=== PATIENT | male | born 1955 | race Caucasian/White ===

== ENCOUNTER → 2018-04-28 | Outpatient (CLI) | payer BC | END | disposition home or self-care (01) | LOC: LABWHC1 15:20 | PROVIDERS: ATTEND Physician Assistant | DX: R42 Dizziness and giddiness (principal) | CPT/HCPCS: 93005 ==

== ENCOUNTER → 2018-05-09 | Outpatient (CLI) | payer BC ==
--- NOTE | 2018-05-10 09:40 | ECHOF ---
Referral Reason:I51.7 Cardiomegaly MEASUREMENTS -------- HEIGHT: 172.7 cm WEIGHT: 69.9 kg BP: RVIDd: 2.8 cm (< 3.3) IVSd: 0.8 cm (0.6 - 1.1) LVIDd: 3.9 cm (3.9 - 5.3) LVPWd: 0.9 cm (0.6 - 1.1) IVSs: 1.2 cm LVIDs: 2.6 cm LVPWs: 1.2 cm LAESV Index (A-L): 20.59 ml/m Ao Diam: 2.6 cm (2.0 - 3.7) AV Cusp: 1.9 cm (1.5 - 2.6) LA Diam: 2.2 cm (2.7 - 3.8) EPSS: 0.7 cm MV E James: 0.76 m/s MV DecT: 248 ms MV A James: 0.93 m/s MV E/A Ratio: 0.82 RAP: 5.00 mmHg RVSP: 32.07 mmHg MV EF SLOPE: 85.61 mm/s (70 - 150) MV EXCURSION: 1.79 cm (> 18.000) FINDINGS -------- Sinus rhythm. This was a technically good study. The left ventricular size is normal. Left ventricular wall thickness is normal. Overall left vent ricular systolic function is normal with, an EF between 55 - 60 %. The right ventricle is normal in size and function. Normal LA size by volume 22+/-6 ml/m2. The right atrium is normal in size. Aortic valve is trileaflet and is mildly thickened. There is no evidence of aortic regurgitation. There is no evidence of aortic stenosis. The mitral valve leaflets are mildly thickened. There is trace to mild mitral regurgitation. Trace tricuspid regurgitation present. Right ventricular systolic pressure is normal at < 35 mmHg. There is no evidence of pulmonary hypertension. The pulmonic valve was not well visualized. The aortic root size is normal. Normal inferior vena cava with normal inspiratory collapse consistent with estimated right atrial pre ssure of 5 mmHg. There is no pericardial effusion. CONCLUSIONS -------- 1. Sinus rhythm. 2. This was a technically good study. 3. The left ventricular size is normal. 4. Left ventricular wall thickness is normal. 5. Overall left ventricular systolic function is normal with, an EF between 55 - 60 %. 6. Normal LA size by volume 22+/-6 ml/m2. 7. Aortic valve is trileaflet and is mildly thickened. 8. The mitral valve leaflets are mildly thickened. 9. There is trace to mild mitral regurgitation. 10. Trace tricuspid regurgitation present. 11. Right ventricular systolic pressure is normal at < 35 mmHg. 12. There is no evidence of pulmonary hypertension. 13. The pulmonic valve was not well visualized. 14. The aortic root size is normal. 15. There is no pericardial effusion. [employer]: Ld Martinez RDCS
== END | disposition home or self-care (01) ==
LOC: RADECHMAIN 16:17
PROVIDERS: ATTEND Family Medicine
DX: I08.0 Rheumatic disorders of both mitral and aortic valves (principal)
CPT/HCPCS: 93306

== ENCOUNTER 2025-01-13 10:19 | Day surgery (SDC) | payer MEDICARE ==
--- NOTE | 2025-01-13 08:39 | P.GSHP ---
History of Present Illness H&P Date: 01/13/25 CHIEF COMPLAINT: Colon screen HISTORY OF PRESENT ILLNESS: The patient is a 69-year-old male who presents for colon screen. Lower endoscopy was offered for further evaluation and management. PAST MEDICAL HISTORY: Please see list. PAST SURGICAL HISTORY: Please see list. MEDICATIONS: Please see list. ALLERGIES: Please see list. SOCIAL HISTORY: No illicit drug use FAMILY HISTORY: No reports of Crohn disease or ulcerative colitis. REVIEW OF ORGAN SYSTEMS: CONSTITUTIONAL: No reports of fevers or chills. PHYSICAL EXAM: VITAL SIGNS: Stable GENERAL: Well-developed pleasant in no acute distress. HEENT: No scleral icterus. Extraocular movements grossly intact. Moist buccal mucosa. NECK: Supple without lymphadenopathy. CHEST: Unlabored respirations. Equal bilateral excursions. CARDIOVASCULAR: Regular rate and rhythm. Distal 2+ pulses. ABDOMEN: Soft, nontender, nondistended. MUSCULOSKELETAL: No clubbing, cyanosis, or edema. ASSESSMENT: 1. Colon screen. PLAN: 1. Recommend proceeding with a lower endoscopy Past Medical History Past Medical History: Hypertension Additional Past Medical History / Comment(s): positive cologard History of Any Multi-Drug Resistant Organisms: None Reported Past Surgical History: No Surgical Hx Reported Additional Past Anesthesia/Blood Transfusion Reaction / Comment(s): no family problems w/anesthesia he's aware of Smoking Status: Former smoker Medications and Allergies Home Medications Medication Instructions Recorded Confirmed Type Cholecalciferol (Vitamin D3) 50 mcg PO DAILY 01/11/25 01/11/25 History [Vitamin D3 (50 Mcg = 2000 Iu)] Ferrous Sulfate [Feosol] 28 mg PO DAILY 01/11/25 01/11/25 History Folic Acid 800 mcg PO DAILY 01/11/25 01/11/25 History Magnesium 250 mg PO DAILY 01/11/25 01/11/25 History Multivit-Minerals/FA/Lycopene 1 each PO DAILY 01/11/25 01/11/25 History [One-A-Day Men's 50 Plus Tablet] Vitamin B Complex 1 each PO DAILY 01/11/25 01/11/25 History Zinc Gluconate [Zinc] 50 mg PO DAILY 01/11/25 01/11/25 History amLODIPine [Norvasc] 10 mg PO 1600 01/11/25 01/11/25 History hydroCHLOROthiazide [Hydrodiuril] 50 mg PO DAILY 01/11/25 01/11/25 History lisinopriL [Zestril] 40 mg PO DAILY 01/11/25 01/11/25 History Allergies Allergy/AdvReac Type Severity Reaction Status Date / Time No Known Allergies Allergy Verified 01/11/25 11:03
[~2025-01-13 10:19] MED LIST: LIDOCAINE 1% (10MG/ML) FOR IV START INTRADERMA PRN
[2025-01-13] MEDS: IV FLUID CONTINUATION 1,000 ML IV ONE (11:15)
[2025-01-13 11:30] VITALS: RESP 16; TEMP 97
[2025-01-13] MEDS: LACTATED RINGERS 1,000 ML IV SCH (11:31)
[2025-01-13] MEDS ORDERED: PROPOFOL 10 MG/ML 20 ML VIAL IV ONE (12:01)
--- NOTE | 2025-01-13 12:24 | P.PCN ---
Date of Procedure: 01/13/25 Description of Procedure: PREOPERATIVE DIAGNOSIS: Abnormal Cologuard POSTOPERATIVE DIAGNOSIS: Constipation, poor prep OPERATION: Aborted colonoscopy to sigmoid colon SURGEON: Lissy Reed MD. ANESTHESIA: MAC. INDICATIONS: The patient is a 69-year-old male who presents abnormal Cologuard.. Benefits and risks were described and informed consent was obtained. DESCRIPTION OF PROCEDURE: The patient had undergone bowel to [place] prep. He had been brought into the endoscopy room and laid in the left lateral decubitus position. After adequate intravenous sedation, the rectum was examined with 2% lidocaine jelly. External hemorrhoids were encountered. The rectal tone was within normal limits. No lesions were palpated in the rectal vault. An Olympus colonoscope was advanced along the rectum where moderate firm stool was found. The colonoscope was removed. FINDINGS: Aborted colonoscopy due to poor prep, solid stool [place] preparation quality scale 5 (1-5) RECOMMENDATIONS: Alternative bowel prep including lactulose Plan - Discharge Summary Discharge Rx Participant: No New Discharge Prescriptions: Continue hydroCHLOROthiazide [Hydrodiuril] 50 mg PO DAILY Magnesium 250 mg PO DAILY Folic Acid 800 mcg PO DAILY Cholecalciferol (Vitamin D3) [Vitamin D3 (50 Mcg = 2000 Iu)] 50 mcg PO DAILY lisinopriL [Zestril] 40 mg PO DAILY amLODIPine [Norvasc] 10 mg PO 1600 Zinc Gluconate [Zinc] 50 mg PO DAILY Vitamin B Complex 1 each PO DAILY Multivit-Minerals/FA/Lycopene [One-A-Day Men's 50 Plus Tablet] 1 each PO DAILY Ferrous Sulfate [Iron (65 MG Elemental)] 28 mg PO DAILY Discharge Medication List Cholecalciferol (Vitamin D3) [Vitamin D3 (50 Mcg = 2000 Iu)] 50 mcg PO DAILY 01/11/25 [History] Ferrous Sulfate [Iron (65 MG Elemental)] 28 mg PO DAILY 01/11/25 [History] Folic Acid 800 mcg PO DAILY 01/11/25 [History] Magnesium 250 mg PO DAILY 01/11/25 [History] Multivit-Minerals/FA/Lycopene [One-A-Day Men's 50 Plus Tablet] 1 each PO DAILY 01/11/25 [History] Vitamin B Complex 1 each PO DAILY 01/11/25 [History] Zinc Gluconate [Zinc] 50 mg PO DAILY 01/11/25 [History] amLODIPine [Norvasc] 10 mg PO 1600 01/11/25 [History] hydroCHLOROthiazide [Hydrodiuril] 50 mg PO DAILY 01/11/25 [History] lisinopriL [Zestril] 40 mg PO DAILY 01/11/25 [History] Follow up Appointment(s)/Referral(s): Lissy Reed MD [STAFF PHYSICIAN] - 02/02/25 2:30 pm Patient Instructions/Handouts: Constipation (DC) Activity/Diet/Wound Care/Special Instructions: Needs colonoscopy after appropriate prep Discharge Disposition: HOME SELF-CARE
[2025-01-13 12:46] VITALS: BP 121/73; PULSE 74
== END 2025-01-13 13:07 | disposition home or self-care (01) ==
LOC: ORWHC2ENDO 10:19
PROVIDERS: ATTEND Surgery Plastic and Reconstructive Surgery
DX: Z12.11 Encounter for screening for malignant neoplasm of colon (principal); K64.4 Residual hemorrhoidal skin tags; I10 Essential (primary) hypertension; Z79.899 Other long term (current) drug therapy; Z87.891 Personal history of nicotine dependence
CPT/HCPCS: 45330; J2704; 45378

== ENCOUNTER → 2025-02-15 | Outpatient (CLI) | payer MEDICARE ==
[2025-02-15 14:07] LABS: African American GFR (CKD) >90 (>60 ml/min/1.73 sqM); Blood Urea Nitrogen 16 mg/dL (9-20); Non-African American GFR(CKD) >90 (>60 ml/min/1.73 sqM)
--- NOTE | 2025-02-17 10:24 | CT ---
EXAMINATION TYPE: CT abdomen pelvis w con DATE OF EXAM: 02/15/2025 3:36 PM COMPARISON: None. CLINICAL INDICATION: Male, 69 years old with history of K57.32 DVTRCLI OF LG INT W/O PERFORATION OR A BSCES, perforation, abscess, diverticulitis TECHNIQUE: Axial images were obtained from above the diaphragm to the pubic rami in the axial plane a t 5 mm thick sections. Reconstructed images are reviewed on the computer in the coronal plane. CONTRAST: 100 ml mL of Isovue 300. Study performed with Oral Contrast DLP: 559.6 mGycm, Automated exposure control for dose reduction was used. FINDINGS: Limited CT sections are obtained the lung bases. The lung bases are clear. CT ABDOMEN: There is an anterior abdominal wall hernia containing mesenteric fat. No loops of bowel a re involved. Liver: Couple of scattered cysts are present within the liver Spleen: Normal Pancreas: There may be some minimal prominence of the pancreatic duct within the body of the pancreas . Pancreatic duct is identified extending towards the tail and into the head of the pancreas. Conside r short-term follow-up or ERCP. Adrenal glands: The adrenal glands are normal. Gallbladder: Normal Kidneys: No masses are evident. No hydronephrosis is present. No cysts are present. Delayed images were obtained through the kidneys, which remain unremarkable. Aorta: Vascular calcification is within the aorta. Normal fusiform prominence of the abdominal aorta is present in the midportion measuring 2.7 cm AP. Inferior vena cava: Normal. CT PELVIS: Loops of bowel within the abdomen and pelvis are normal. There is some diverticular changes within th e sigmoid colon. There are loops of bowel which are incompletely distended or lack oral contrast l imiting their evaluation. Appendix: Normal as visualized. Urinary bladder: Normal. Genitourinary structures: Prostate prominence is present. Osseous structures: No suspicious lytic or sclerotic lesions. IMPRESSION: 1. Diverticulosis without acute diverticulitis. 2. Anterior abdominal wall hernia with mesenteric fat. 3. Minimal prominence of the mid pancreatic duct with visualization of the pancreatic duct. Consider short-term follow-up or ERCP [facility], , 02/17/2025 10:22 AM
== END | disposition home or self-care (01) ==
LOC: RADCTMAIN 13:20
PROVIDERS: ATTEND Surgery Plastic and Reconstructive Surgery
DX: K57.32 Diverticulitis of large intestine without perforation or abscess without bleeding (principal); K43.9 Ventral hernia without obstruction or gangrene
CPT/HCPCS: 82565; 84520; 74177; 36415; Q9967